=== PATIENT | female | born 1965 | race Caucasian/White ===

== ENCOUNTER 2017-12-09 22:47 | Emergency (ER) | payer SELFPAY ==
[~2017-12-09] VITALS: Ht 167.6 cm; Wt 79.5 kg
[2017-12-10 00:43] LABS: URINE COLOR YELLOW
[2017-12-10 00:44] LABS: URINE APPEARANCE CLOUDY; URINE BILIRUBIN NEGATIVE (NEGATIVE); URINE BLOOD TRACE (NEGATIVE); URINE GLUCOSE NEGATIVE (NEGATIVE); URINE KETONE NEGATIVE (NEGATIVE); URINE LEUKOCYTE ESTERASE 2+ (NEGATIVE); URINE NITRATE POSITIVE (NEGATIVE); URINE PROTEIN(semi-quant) TRACE mg/dL (NEGATIVE); URINE UROBILINOGEN NORMAL (NORMAL)
[2017-12-10] MEDS ORDERED: SEPTRA DS 8001 TAB PO (01:00)
[2017-12-10 01:08] VITALS: BP 140/80
== END 2017-12-10 01:08 | disposition home or self-care (01) ==
LOC: ED 22:47
PROVIDERS: Nurse Practitioner Family
DX: N30.00 Acute cystitis without hematuria (principal); N99.89 Other postprocedural complications and disorders of genitourinary system

== ENCOUNTER → 2018-06-30 | Day surgery (SDC) | payer MEDICAID ==
[~2018-06-30] MED LIST: SEPTRA DS 8001 TAB PO
== END ==
LOC: MSO 12:17
DX: Z12.11 Encounter for screening for malignant neoplasm of colon (principal); Z88.6 Allergy status to analgesic agent; K59.00 Constipation, unspecified; R33.9 Retention of urine, unspecified; G62.9 Polyneuropathy, unspecified
CPT/HCPCS: 00812; J2704; J3010; J7120

== ENCOUNTER 2020-10-19 23:01 | Emergency (ER) | payer MEDICARE, MEDICAID ==
[2020-10-19 23:34] LABS: HEMATOCRIT 42.3 % (37.0-47.0); HEMOGLOBIN 13.4 g/dL (12.5-16.0); MEAN CELL VOLUME 87 fl (78-100); MEAN CORPUSCULAR HEMOGLOBIN 28 pg (27-31); MEAN CORPUSCULAR HGB CONC 32 g/dL (33-37); MEAN PLATELET VOLUME 9.2 fl (7.4-10.4); PLATELET COUNT 219 K/mm3 (130-400); RED BLOOD COUNT 4.86 M/mm3 (4.10-5.30); RED CELL DISTRIBUTION WIDTH 13.9 % (11.5-14.5); WHITE BLOOD COUNT 8.1 K/mm3 (4.8-10.8)
[2020-10-19 23:41] LABS: ALBUMIN 4.3 g/dL (3.5-5.0)
[2020-10-19 23:42] LABS: POTASSIUM 3.7 mmol/L (3.5-5.1)
[2020-10-19 23:43] LABS: CALCIUM 9.7 mg/dL (8.3-10.5)
[2020-10-19 23:44] LABS: TOTAL PROTEIN 8.2 g/dL (6.4-8.3)
[2020-10-19 23:46] LABS: TOTAL BILIRUBIN 0.4 mg/dL (0.2-1.2)
[2020-10-19] MEDS ORDERED: MORGIDOX 1X100100 MG PO (23:51)
[2020-10-19] MEDS ORDERED: PREDNISONE20 M1 PO (23:51)
[2020-10-19 23:57] LABS: LYMPHOCYTE 8 % (20-51); MONOCYTE 5 % (3-10); NEUTROPHILS 86 % (42-75)
[2020-10-20 00:04] VITALS: BP 146/81
== END 2020-10-20 00:14 | disposition home or self-care (01) ==
LOC: ED 23:01
PROVIDERS: Nurse Practitioner
DX: U07.1 COVID-19 (principal); Z88.5 Allergy status to narcotic agent
CPT/HCPCS: J7512

== ENCOUNTER 2020-10-28 18:49 | Emergency (ER) | payer MEDICARE, MEDICAID ==
[~2020-10-28] VITALS: Ht 167.6 cm; Wt 86.4 kg
[~2020-10-28 18:49] MED LIST changes: +MORGIDOX 1X100100 MG PO; +PREDNISONE20 M1 PO
[2020-10-28 19:53] LABS: BASO # 0.02 (0.02-0.10); EOS # 0.02 (0.04-0.40); EOS % 0.3 % (1.0-5.0); HEMATOCRIT 41.8 % (37.0-47.0); HEMOGLOBIN 13.7 g/dL (12.5-16.0); LYMPH# 1.15 (1.50-4.00); MEAN CELL VOLUME 87 fl (78-100); MEAN CORPUSCULAR HEMOGLOBIN 28 pg (27-31); MEAN CORPUSCULAR HGB CONC 33 g/dL (33-37); MEAN PLATELET VOLUME 9.8 fl (7.4-10.4); MONO # 0.52 (0.20-0.80); NEU # 4.84 (1.40-6.50); PLATELET COUNT 147 K/mm3 (130-400); RED BLOOD COUNT 4.82 M/mm3 (4.10-5.30); RED CELL DISTRIBUTION WIDTH 14.2 % (11.5-14.5); WHITE BLOOD COUNT 6.6 K/mm3 (4.8-10.8)
[2020-10-28] MEDS ORDERED: GUAIFEN-CODEINE5 ML PO (22:11)
[2020-10-28] MEDS ORDERED: DECADRON 4MG TAB4 MG PO (22:11)
[2020-10-28 22:42] VITALS: BP 120/56
== END 2020-10-28 22:42 | disposition home or self-care (01) ==
LOC: ED 18:49
PROVIDERS: Family Medicine
DX: U07.1 COVID-19 (principal)
CPT/HCPCS: J1100